=== PATIENT | female | born 1955 | race Caucasian/White ===

== ENCOUNTER 2022-01-13 16:27 | Outpatient (CLI) | payer BC | END 2022-01-13 16:28 | disposition home or self-care (01) | LOC: CSHRAD 16:27 | PROVIDERS: ATTEND Internal Medicine Rheumatology | DX: M13.0 Polyarthritis, unspecified (principal) | CPT/HCPCS: 71046 ==

== ENCOUNTER 2022-06-12 09:54 | Outpatient (CLI) | payer BC | END 2022-06-12 09:55 | disposition home or self-care (01) | LOC: CSHMAMMO 09:54 | PROVIDERS: ATTEND Internal Medicine Rheumatology | DX: M81.0 Age-related osteoporosis without current pathological fracture (principal); M85.851 Other specified disorders of bone density and structure, right thigh; M85.852 Other specified disorders of bone density and structure, left thigh | CPT/HCPCS: 77080 ==